=== PATIENT | female | born 1980 | race Caucasian/White ===

== ENCOUNTER 2018-04-14 08:13 | Emergency (ER) | payer BC ==
[~2018-04-14] VITALS: Ht 160 cm; Wt 88.6 kg
[2018-04-14 08:29] VITALS: Ht 160 cm; Wt 88.6 kg
[2018-04-14] MEDS ORDERED: ESTRACE1 MG PO (08:31)
[2018-04-14] MEDS ORDERED: LEXAPRO10 MG PO (08:31)
[2018-04-14 08:59] LABS: BASOPHILS 0.3 % (0-2); EOSINOPHILS 1.9 % (0-7); HEMATOCRIT 42.2 % (36.0-48.0); HEMOGLOBIN 13.8 g/dL (12-16); IMMATURE GRANULOCYTES 0.1 % (0-5); LYMPHOCYTES 33.2 % (15-50); MCH 30.7 pg (26.0-34.0); MCHC 32.7 g/dL (31.0-37.0); MEAN PLATELET VOLUME 10.4 fL (7.4-10.4); MONOCYTES 5.8 % (2-11); NEUTROPHILS 58.7 % (40-80); PLATELET COUNT 170 10x3/uL (130-400); RBC 4.49 10x6/uL (4.00-5.40); RDW 12.7 % (11.5-14.5); WBC 7.3 10x3/uL (4.8-10.8)
[2018-04-14] MEDS ORDERED: BENZONATATE200 MG PO (09:16)
[2018-04-14] MEDS ORDERED: SCOT-TUSSI10 MG/5 ML PO (09:16)
[2018-04-14] MEDS ORDERED: MEDROL DOSE PACK4 MG PO (09:16)
[2018-04-14] MEDS ORDERED: ALBUTEROL2.5 MG/3 M INH (09:16)
[2018-04-14 09:18] LABS: ALBUMIN 3.9 g/dL (3.4-5.0); ALKALINE PHOSPHATASE 69 U/L (46-116); ALT (SGPT) 21 U/L (10-68); AMYLASE - SERUM 41 U/L (25-115); BILIRUBIN - TOTAL 0.23 mg/dL (0.2-1.3); CARBON DIOXIDE 30.7 mmol/L (21.0-32.0); CHLORIDE - SERUM 105 mmol/L (98-107); CREATININE - SERUM 0.7 mg/dL (0.6-1.3); LIPASE 222 U/L (73-393); POTASSIUM - SERUM 3.5 mmol/L (3.5-5.1); PROTEIN - SERUM 7.3 g/dL (6.4-8.2); SODIUM 142 mmol/L (136-145); UREA NITROGEN 16 mg/dL (7-18); eGFR NON AFRICAN AMERICAN > 90 mL/min (90-120)
[2018-04-14 09:19] LABS: APPEARANCE SL CLDY (CLEAR); COLOR YELLOW (YELLOW); SPECIFIC GRAVITY 1.015 (1.005-1.020)
[2018-04-14 09:20] LABS: BACTERIA FEW /hpf (NONE SEEN); BILIRUBIN NEGATIVE (NEGATIVE); EPITHELIAL CELLS 0-5 /hpf (0-5); GLUCOSE NEGATIVE (NEGATIVE); KETONE NEGATIVE (NEGATIVE); NITRITE NEGATIVE (NEGATIVE); PROTEIN NEGATIVE (NEGATIVE); UROBILINOGEN NORMAL (NORMAL); WHITE CELLS - URINE OCC /hpf (0-5)
[2018-04-14 09:24] LABS: CALC OSMOLALITY 280 mosm/kg (275-300)
[2018-04-14 09:26] LABS: MUCUS <1+ /lpf (NONE SEEN)
[2018-04-14 09:38] LABS: GLUCOSE 50 mg/dL (74-106)
[2018-04-14] MEDS ORDERED: ZOFRAN ODT4 MG/UDTAB PO (12:36)
[2018-04-14] MEDS ORDERED: NORCO 10-325 TA1 TAB PO (12:36)
[2018-04-14] MEDS ORDERED: FLOMAX0.4 MG PO (12:36)
[2018-04-14 13:07] VITALS: BP 116/71
== END 2018-04-14 13:08 | disposition home or self-care (01) ==
LOC: D.ER 08:13
PROVIDERS: Family Medicine
DX: N20.1 Calculus of ureter (principal); R10.31 Right lower quadrant pain; N23 Unspecified renal colic

== ENCOUNTER 2018-04-23 12:06 | Day surgery (SDC) | payer BC ==
[2018-04-22 16:32] LABS: HEMATOCRIT 38.3 % (36.0-48.0); HEMOGLOBIN 12.4 g/dL (12-16); MCH 30.1 pg (26.0-34.0); MCHC 32.4 g/dL (31.0-37.0); MEAN PLATELET VOLUME 10.5 fL (7.4-10.4); RBC 4.12 10x6/uL (4.00-5.40); RDW 12.2 % (11.5-14.5); WBC 6.8 10x3/uL (4.8-10.8)
[~2018-04-23] VITALS: Ht 160 cm; Wt 88.9 kg
--- NOTE | ~2018-04-23 | OP ---
PATIENT NAME: MAXIMO GALLEGO MEDICAL RECORD: [id number] :78 LOCATION:[facility] ADMISSION DATE: SURGEON: JENNI JIMENEZ MD DATE OF OPERATION: 04/23/2018 SURGEON: Jenni Jimenez MD ANESTHESIA: TIVA by Shahbaz Hui CRNA DIAGNOSES: History of right ureteral stone, interstitial cystitis. PROCEDURES: Cystoscopy, right retrograde pyelogram, intravesical Rimso instillation. FINDINGS: On cystoscopy, diffuse bladder inflammation without any bladder tumors. Single ureteral orifices bilaterally. Right retrograde pyelogram shows no filling defects or hydronephrosis. BLOOD LOSS: None. CLINICAL HISTORY: This is a 37-year-old female with a previous history of kidney stones. She came to the Emergency Room with acute right flank pain. She was found to have on CT scan a 5-mm stone in the proximal right ureter. This was performed just before . She continues to have ongoing flank and pelvic pain. She comes today to have right ureteroscopy and stone extraction. She is not allergic to any medications. We gave her Ancef communications manager to the OR. DESCRIPTION OF PROCEDURE: The patient was given IV sedation. She was then placed into dorsal lithotomy position and prepped and draped. Fluoroscopy did not reveal any radiodense stones. When I attempted to place the cystoscope in, she reacted quite strongly with pain and movement. I finally managed to put the 21-Tanzanian scope sheath in using the obturator. Looking in the bladder, she has diffuse bladder inflammation. An open-ended ureteral catheter was inserted into the right ureteral orifice. A right retrograde pyelogram was performed by injecting diluted contrast. No filling defects at all were seen and there is no hydronephrosis. I suspect that she has passed her stone at some point in the past. Her ongoing pelvic and flank pains are probably due to interstitial cystitis. Therefore, the bladder was emptied through the cystoscope sheath and then the scope was removed entirely. We inserted an 8-Tanzanian red rubber catheter into the bladder and through the catheter we instilled the bladder with 50 mL of intravesical Rimso solution. The catheter was then removed, leaving the solution in the bladder. The patient will be taken back to the outpatient facility. I will see her back next week for Rimso treatment #2 TRANSINT:[id number] Voice Confirmation ID: [id number] DOCUMENT ID: [id number] JENNI JIMENEZ MD at 2007 CC: [id number] DICTATION DATE: 04/23/18 1518 WHITE LEAD GRINDER: 04/23/18 2256 [facility] 04/23/[address] [id number]
[~2018-04-23 12:06] MED LIST: ALBUTEROL2.5 MG/3 M INH; BENZONATATE200 MG PO; ESTRACE1 MG PO; FLOMAX0.4 MG PO; LEXAPRO10 MG PO; MEDROL DOSE PACK4 MG PO; NORCO 10-325 TA1 TAB PO; SCOT-TUSSI10 MG/5 ML PO; ZOFRAN ODT4 MG/UDTAB PO
[2018-04-23] MEDS ORDERED: FLUTICASONE PRO16 GM (13:44)
[2018-04-23 13:49] VITALS: BP 110/67; Ht 160 cm; Wt 88.9 kg
== END 2018-04-23 15:50 | disposition home or self-care (01) ==
LOC: D.OPS 12:06
PROVIDERS: Anesthesiology
DX: N30.10 Interstitial cystitis (chronic) without hematuria (principal); N20.1 Calculus of ureter; Z01.812 Encounter for preprocedural laboratory examination

== ENCOUNTER 2018-04-28 14:08 | Emergency (ER) | payer BC ==
[~2018-04-28] VITALS: Ht 160 cm; Wt 89.1 kg
[~2018-04-28 14:08] MED LIST changes: +FLUTICASONE PRO16 GM
[2018-04-28 14:14] VITALS: Ht 160 cm; Wt 89.1 kg
[2018-04-28 17:56] LABS: APPEARANCE CLEAR (CLEAR); BILIRUBIN NEGATIVE (NEGATIVE); COLOR YELLOW (YELLOW); GLUCOSE NEGATIVE (NEGATIVE); KETONE NEGATIVE (NEGATIVE); NITRITE NEGATIVE (NEGATIVE); PROTEIN NEGATIVE (NEGATIVE); UROBILINOGEN NORMAL (NORMAL)
[2018-04-28 18:07] LABS: BASOPHILS 0.4 % (0-2); HEMATOCRIT 39.1 % (36.0-48.0); HEMOGLOBIN 12.6 g/dL (12-16); LYMPHOCYTES 40.5 % (15-50); MCH 30.1 pg (26.0-34.0); MCHC 32.2 g/dL (31.0-37.0); MCV 93.3 fL (80.0-100.0); MEAN PLATELET VOLUME 10.4 fL (7.4-10.4); MONOCYTES 6.3 % (2-11); NEUTROPHILS 49.8 % (40-80); PLATELET COUNT 146 10x3/uL (130-400); RBC 4.19 10x6/uL (4.00-5.40); RDW 12.2 % (11.5-14.5); WBC 5.7 10x3/uL (4.8-10.8)
[2018-04-28 18:33] LABS: ALBUMIN 3.6 g/dL (3.4-5.0); ALKALINE PHOSPHATASE 65 U/L (46-116); ALT (SGPT) 20 U/L (10-68); BILIRUBIN - TOTAL 0.24 mg/dL (0.2-1.3); CALC OSMOLALITY 280 mosm/kg (275-300); CALCIUM 9.1 mg/dL (8.5-10.1); CARBON DIOXIDE 32.5 mmol/L (21.0-32.0); CHLORIDE - SERUM 106 mmol/L (98-107); CREATININE - SERUM 0.6 mg/dL (0.6-1.3); POTASSIUM - SERUM 5.1 mmol/L (3.5-5.1); PROTEIN - SERUM 6.7 g/dL (6.4-8.2); SODIUM 141 mmol/L (136-145); UREA NITROGEN 14 mg/dL (7-18); eGFR NON AFRICAN AMERICAN > 90 mL/min (90-120)
[2018-04-28 18:35] LABS: GLUCOSE 87 mg/dL (74-106)
[2018-04-28] MEDS ORDERED: TYLENOL W/CODEI1 TAB PO (18:45)
[2018-04-28] MEDS ORDERED: TORADOL10 MG PO (18:45)
[2018-04-28 19:47] VITALS: BP 107/68
== END 2018-04-28 19:47 | disposition home or self-care (01) ==
LOC: D.ER 14:08
PROVIDERS: Emergency Medicine
DX: R10.9 Unspecified abdominal pain (principal)

== ENCOUNTER → 2018-07-07 17:32 | Outpatient (CLI) | payer BC ==
[2018-04-28 14:14] VITALS: BMI 34.8
[~2018-07-07 17:32] MED LIST changes: +TORADOL10 MG PO; +TYLENOL W/CODEI1 TAB PO; +ZYRTEC10 MG PO
== END | disposition home or self-care (01) ==
LOC: D.MAMMO 15:30
DX: Z12.31 Encounter for screening mammogram for malignant neoplasm of breast (principal)

== ENCOUNTER 2018-07-21 10:37 | Observation (INO) | payer BC ==
[~2018-07-21] VITALS: Ht 160 cm; Wt 88.6 kg
[~2018-07-21 10:37] MED LIST changes: -ZYRTEC10 MG PO
[2018-07-21 11:00] LABS: BASOPHILS 0.3 % (0-2); EOSINOPHILS 2.8 % (0-7); HEMATOCRIT 40.5 % (36.0-48.0); IMMATURE GRANULOCYTES 0.3 % (0-5); LYMPHOCYTES 39.5 % (15-50); MCH 30.1 pg (26.0-34.0); MCHC 32.1 g/dL (31.0-37.0); MCV 93.8 fL (80.0-100.0); MEAN PLATELET VOLUME 10.2 fL (7.4-10.4); MONOCYTES 4.2 % (2-11); NEUTROPHILS 52.9 % (40-80); PLATELET COUNT 153 10x3/uL (130-400); RBC 4.32 10x6/uL (4.00-5.40); RDW 12.5 % (11.5-14.5); WBC 6.7 10x3/uL (4.8-10.8)
[2018-07-21 11:24] LABS: ALBUMIN 3.8 g/dL (3.4-5.0); ALKALINE PHOSPHATASE 65 U/L (46-116); ALT (SGPT) 20 U/L (10-68); BILIRUBIN - TOTAL 0.21 mg/dL (0.2-1.3); CALC OSMOLALITY 277 mosm/kg (275-300); CALCIUM 8.8 mg/dL (8.5-10.1); CARBON DIOXIDE 31.3 mmol/L (21.0-32.0); CHLORIDE - SERUM 103 mmol/L (98-107); CREATININE - SERUM 0.8 mg/dL (0.6-1.3); GLUCOSE 88 mg/dL (74-106); HCG SERUM NEGATIVE (NEGATIVE); POTASSIUM - SERUM 3.5 mmol/L (3.5-5.1); PROTEIN - SERUM 6.8 g/dL (6.4-8.2); SODIUM 140 mmol/L (136-145); UREA NITROGEN 12 mg/dL (7-18); eGFR NON AFRICAN AMERICAN 85 mL/min (90-120)
[2018-07-21 11:34] LABS: APPEARANCE CLEAR (CLEAR); BACTERIA MANY /hpf (NONE SEEN); BILIRUBIN NEGATIVE (NEGATIVE); COLOR YELLOW (YELLOW); EPITHELIAL CELLS 0-5 /hpf (0-5); GLUCOSE NEGATIVE (NEGATIVE); KETONE NEGATIVE (NEGATIVE); NITRITE NEGATIVE (NEGATIVE); PROTEIN NEGATIVE (NEGATIVE); SPECIFIC GRAVITY 1.015 (1.005-1.020); UROBILINOGEN NORMAL (NORMAL); WHITE CELLS - URINE RARE /hpf (0-5)
[2018-07-21 11:35] LABS: MUCUS <1+ /lpf (NONE SEEN)
[2018-07-21 13:39] VITALS: BP 103/68
[2018-07-21 14:10] LABS: INR 0.96 (0.85-1.17); PROTIME 12.3 SECONDS (11.6-15.0)
[2018-07-21] MEDS ORDERED: ZYRTEC10 MG PO (14:40)
[2018-07-21 15:47] VITALS: BP 97/51; BMI 34.6
[2018-07-21 17:11] VITALS: Ht 160 cm; Wt 88.6 kg
[2018-07-21 17:34] VITALS: BP 108/54
--- NOTE | 2018-07-22 08:01 | OP ---
PATIENT NAME: MAXIMO GALLGEO MEDICAL RECORD: [id number] :79 LOCATION:[id number] ADMISSION DATE:07/21/18 SURGEON: KRISHNA JIMENEZ MD DATE OF OPERATION: 07/21/2018 SURGEON: Krishna Jimenez MD ANESTHESIA: General anesthesia by Manuel Piedra CRNA. PREOPERATIVE DIAGNOSIS: A 6 mm right distal ureteral stone. PROCEDURES: Cystoscopy, right retrograde pyelogram, right ureteroscopy and stone extraction, right ureteral stent insertion 6-Iranian x 24 cm with string attached. FINDINGS: Radiodense right distal ureteral 6-mm stone. SPECIMENS: Right ureteral stone. ESTIMATED BLOOD LOSS: None. CLINICAL HISTORY: This is a 37-year-old female with a previous history of kidney stones. She awoke this morning with acute right flank pain with nausea and vomiting, but no fever. She came to the Emergency Room where CT scan showed a 6-mm stone lodged in the right distal ureter with proximal hydronephrosis. She is admitted for pain control and now she comes to have the stone removed by ureteroscopy. She last ate at 6:30 a.m. She is not allergic to any medications. She was given Ancef special education superintendent to the OR. DESCRIPTION OF PROCEDURE: The patient was given induction of general anesthesia. She was then placed into dorsal lithotomy position and prepped and draped. Fluoroscopy revealed a radiodensity in the right lower pelvis. I then performed cystoscopy. A 21-Iranian cystoscope with 30-degree lens was used for visualization. No bladder tumors were seen. She has single ureteral orifices on each side. The 5-Iranian open-ended ureteral catheter was placed into the right ureteral orifice and a retrograde pyelogram was performed. This did show that the radiodensity we saw earlier was the stone in question. There is also proximal hydroureteronephrosis. No ureteral filling defects were seen. A Sensor wire was then inserted through the ureteral catheter lumen up to the renal pelvis. The ureteral catheter was then removed entirely. Over the Sensor wire, we inserted an 18-Iranian x 4-cm ureteral dilation balloon. I initially dilated the ureter distal to the stone. We used 12 atmospheres of pressure on the balloon for a few seconds and then the balloon was deflated partly. The balloon was then slid higher up and then reinflated to 12 atmospheres for a few seconds, then completely deflated. This serves to push the stone a little more proximally where it is more hydronephrotic. Also, it serves to dilate any ureteral edema, which is holding the stone in place. We then removed the cystoscope and the ureteral dilation balloon, leaving the guidewire in place. We used a semi-rigid ureteroscope adjacent to the wire. We found the stone. A Zero Tip 1.9-Iranian 4-wire basket was placed around the stone and the stone was completely removed under direct vision. The stone will be sent to pathology for stone analysis. The ureteroscopy up to the mid ureteral level and found no other stones or filling defects. The ureteroscope was then removed entirely. The wire was backloaded on the cystoscope. Through the cystoscope and over the wire, we inserted the 6-Iranian x 24 cm ureteral stent. Once the stent was in OPERATIVE REPORT [id number] correct position, the wire withdrawn entirely. The proximal end of the stent was seen to coil within the renal pelvis. The distal end of the stent was pushed into the bladder using a pusher. The bladder was then emptied through the cystoscope sheath and the scope was removed entirely. The string on the distal end of the stent is maintained. It hangs out of the urethra. It was taped with a small piece of Tegaderm to the suprapubic region. 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 I will see her in followup in 3 weeks' time to review the stone analysis with her. TRANSINT:[id number] Voice Confirmation ID: [id number] DOCUMENT ID: [id number] KRISHNA JIMENEZ MD at 0801 CC: [id number] DICTATION DATE: 07/21/18 170 BOX INSPECTOR: 07/21/18 2304 [facility] IN 07/21/18 [facility] [address] [id number]
== END 2018-07-21 20:27 | disposition home or self-care (01) ==
LOC: D.ER 10:37 → D.EDHOLD 13:45 → OBSVTIME 13:45 → D.MS 14:05
PROVIDERS: Family Medicine; ADMIT Urology
DX: N13.2 Hydronephrosis with renal and ureteral calculous obstruction (principal); F32.9 Major depressive disorder, single episode, unspecified

== ENCOUNTER → 2018-07-30 08:00 | Outpatient (CLI) | payer BC ==
[2018-07-21 17:11] VITALS: BMI 34.6
[~2018-07-30 08:00] MED LIST changes: +ZYRTEC10 MG PO
== END | disposition home or self-care (01) ==
LOC: D.MAMMO 08:00
PROVIDERS: ATTEND Obstetrics & Gynecology
DX: Z12.31 Encounter for screening mammogram for malignant neoplasm of breast (principal)

== ENCOUNTER → 2018-08-23 15:00 | Outpatient (CLI) | payer BC ==
[2018-07-21 17:11] VITALS: BMI 34.6
== END | disposition home or self-care (01) ==
LOC: D.MRI 15:00
PROVIDERS: ATTEND Orthopaedic Surgery
DX: M25.511 Pain in right shoulder (principal)

== ENCOUNTER → 2019-09-30 14:06 | Outpatient (CLI) | payer BC ==
[2018-07-21 17:11] VITALS: BMI 34.6
== END | disposition home or self-care (01) ==
LOC: D.MRI 14:06
PROVIDERS: ATTEND Orthopaedic Surgery
DX: M25.562 Pain in left knee (principal)

== ENCOUNTER → 2019-11-02 15:10 | Outpatient (CLI) | payer BC ==
[2018-07-21 17:11] VITALS: BMI 34.6
[2019-11-02 15:50] LABS: CHOL - HDL RATIO 2.4 ratio (2.3-4.1); LDL-HDL RATIO 1.3 ratio (1.5-3.5)
== END | disposition home or self-care (01) ==
LOC: D.LAB 15:10
PROVIDERS: ATTEND Urology
DX: Z00.00 Encounter for general adult medical examination without abnormal findings (principal)

== ENCOUNTER → 2020-01-03 15:20 | Outpatient (CLI) | payer BC ==
[2018-07-21 17:11] VITALS: BMI 34.6
== END | disposition home or self-care (01) ==
LOC: D.LAB 15:20
PROVIDERS: ATTEND Urology
DX: Z00.00 Encounter for general adult medical examination without abnormal findings (principal)

== ENCOUNTER → 2020-07-27 07:36 | Outpatient (CLI) | payer BC ==
[2018-07-21 17:11] VITALS: BMI 34.6
== END | disposition home or self-care (01) ==
LOC: D.US 07:36
PROVIDERS: ATTEND Surgery
DX: R10.11 Right upper quadrant pain (principal)

== ENCOUNTER → 2020-07-30 14:30 | Outpatient (CLI) | payer BC ==
[2018-07-21 17:11] VITALS: BMI 34.6
== END | disposition home or self-care (01) ==
LOC: D.NM 14:30
PROVIDERS: ATTEND Surgery
DX: R10.11 Right upper quadrant pain (principal)